=== PATIENT | male | born 1995 | race Two or more races ===

== ENCOUNTER 2022-02-09 09:56 | Emergency (ER) | payer SELFPAY ==
[~2022-02-09] VITALS: Ht 152.4 cm; Wt 63.9 kg
[2022-02-09 10:11] VITALS: BP 116/84
[2022-02-09] MEDS ORDERED: cefTRIAXone SOD 1,000 MG VL IM ONE (12:30)
[2022-02-09] MEDS ORDERED: CEPH-322 PO (12:34)
== END 2022-02-09 12:33 | disposition home or self-care (01) ==
LOC: ER 10:00
DX: J03.90 Acute tonsillitis, unspecified (principal); Z20.822 Contact with and (suspected) exposure to COVID-19
CPT/HCPCS: 36415; 87426; 87804; 99283; J0696

== ENCOUNTER 2023-09-14 14:01 | Emergency (ER) | payer MEDICAID, OTHER ==
[~2023-09-14] VITALS: Ht 170.2 cm; Wt 112.0 kg
[~2023-09-14 14:01] MED LIST: CEPH250C PO
[2023-09-14 18:43] VITALS: BP 142/66; PULSE 82; RESP 12; TEMP 98.2; O2SAT 97
== END 2023-09-14 19:08 | disposition left against medical advice (07) ==
LOC: ER 14:01
DX: R22.42 Localized swelling, mass and lump, left lower limb (principal); Z53.21 Procedure and treatment not carried out due to patient leaving prior to being seen by health care provider